=== PATIENT | female | born 1995 | race Two or more races ===

== ENCOUNTER 2019-08-08 01:22 | Emergency (ER) | payer OTHER ==
[2019-08-08] MEDS ORDERED: HYDROXYZINE PAMOATE 50 MG CAPSULE PO ONE (02:56)
--- NOTE | 2019-08-08 02:58 | ER Document Report ---
HPI - HPI Time Seen by Provider: 08/08/19 02:25 Pain Level: 0 Notes: Patient is an otherwise healthy 24-year-old female presented to the emergency department chief complaint of possible anxiety attack. Patient reports she had a feeling of anxiety approximately 2 weeks ago and then again tonight. She denies any suicidal or homicidal ideations. States that the episodes come on where she starts having a worried feeling and then has the feeling of heart palpitations. She states that the episodes resolve themselves after a few minutes. She denies any life problems, states she is happily but her is deployed which is causing her some stress. She lives with her sister currently and has a good support system. She denies any mental health issues, states she has a history of migraines but takes Tylenol or ibuprofen for them. Past Medical History - General Information source: Patient - Social History Smoking Status: Current Every Day Smoker Frequency of alcohol use: Social Drug Abuse: None Family History: Reviewed & Not Pertinent Patient has suicidal ideation: No Patient has homicidal ideation: No Neurological Medical History: Reports: Hx Migraine Surgical Hx: Negative - Immunizations Immunizations up to date: Yes Vertical Provider Document - INFECTION CONTROL TRAVEL OUTSIDE OF THE [place] IN LAST 30 DAYS: No Course - Re-evaluation Re-evalutation: 08/08/19 03:08 Patient appears well, nontoxic, no suicidal or homicidal ideations. She is very well aware of symptoms of anxiety and has a good support system, her sister is at the bedside. They both believe she has been suffering from some mild anxiety attacks and I do agree with this. Patient has not had any formal psych work-up, she is interested in following up with once or so that she can be further evaluated by a mental health provider. A list of community resources was also given to the patient. Patient feels comfortable going home. She will be given a dose of hydroxyzine here in the emergency department. I will not start on any prescriptions at this time as I feel would be more appropriate for her to follow-up. She was invited to return to the emergency department with any new or worsening symptoms. The patient's emergency department workup and current diagnosis were explained to the patient and or family. Follow-up instructions were provided. Medications if prescribed were discussed. Instructions for when to return to the emergency department including specific worrisome symptoms were discussed with the patient and/or family. - Vital Signs Vital signs: Temp Pulse Resp BP Pulse Ox 98.2 F 82 14 133/68 H 08/08/19 01:22 08/08/19 01:22 08/08/19 01:22 08/08/19 01:22 Discharge - Discharge Clinical Impression: Anxiety Condition: Stable Disposition: HOME, SELF-CARE Instructions: Anxiety ([facility]) Additional Instructions: You were seen in the emergency department today after having an anxiety attack. Please follow-up with the resources that I have given you. Another great resources is the [employer] one [employer]. They can link you up with counseling and resources. Please return to the emergency department with any new or worsening symptoms, we are happy to reevaluate you at any time.
[2019-08-08 03:09] VITALS: BP 129/65
== END 2019-08-08 03:05 | disposition home or self-care (01) ==
LOC: ER 01:22
DX: F41.9 Anxiety disorder, unspecified (principal); F17.200 Nicotine dependence, unspecified, uncomplicated
CPT/HCPCS: 99283